=== PATIENT | male | born 1975 | race American Indian/Alaskan Native ===

== ENCOUNTER 2019-01-04 21:00 | Inpatient (IN) | payer SELFPAY ==
[~2019-01-04] VITALS: Ht 170.2 cm; Wt 94.9 kg
[2019-01-04] MEDS ORDERED: ONDANSETRON HCL INJ 2MG/ML 2ML 2 MG/ML VIAL IV STA (21:10)
[2019-01-04] MEDS ORDERED: SODIUM CHLORIDE 0.9% 1000ML 1,000 ML IV STA (21:10)
[2019-01-04] MEDS ORDERED: MORPHINE SULFATE INJ 4 MG/ML INJ 1ML IV STA (21:10)
[2019-01-04] MEDS ORDERED: DIATRIZOATE MEGL/DIATRIZOA SOD 30 ML BTL PO ONE (21:18)
[2019-01-04 21:44] LABS: BASOPHILS % 0.3 % (0.0-1.0); EOSINOPHILS # (AUTO) 0.2 (0.0-0.4); EOSINOPHILS % 1.4 % (0.0-6.0); HEMATOCRIT 49.6 % (38.2-49.6); HEMOGLOBIN 17.4 g/dL (14.0-18.0); LYMPHOCYTES # (AUTO) 3.5 (1.0-3.2); LYMPHOCYTES % 30.2 % (18.0-39.1); MEAN CORPUSCULAR HEMOGLOBIN 31.1 pg (28-32); MEAN CORPUSCULAR HGB CONC 35.1 g/dL (31-35); MEAN CORPUSCULAR VOLUME 88.6 fL (81-99); MONOCYTES # (AUTO) 0.7 (0.2-0.8); NEUTROPHILS # (AUTO) 7.1 (2.1-6.9); NEUTROPHILS % 61.8 % (38.7-80.0); PLATELET COUNT 141 x10e3/uL (140-360); RED CELL DISTRIBUTION WIDTH 13.3 % (11.7-14.4)
[2019-01-04 21:54] LABS: CLARITY,URINE CLEAR (CLEAR); COLOR,URINE YELLOW (YELLOW)
[2019-01-04 21:55] LABS: LEUKOCYTE ESTERASE ,URINE NEGATIVE (NEGATIVE); NITRITE,URINE NEGATIVE (NEGATIVE); PROTEIN,URINE DIPSTICK 1+ (NEGATIVE)
[2019-01-04 21:56] LABS: BILIRUBIN,URINE NEGATIVE (NEGATIVE); KETONES,URINE NEGATIVE (NEGATIVE); URINE UROBILINOGEN 0.2 mg/dL (0.2 - 1)
[2019-01-04 22:04] LABS: ALANINE AMINOTRANSFERASE 31 IU/L (0-55); ALBUMIN 3.9 g/dL (3.5-5.0); ALBUMIN/GLOBULIN RATIO 1.1 (0.8-2.0); ALKALINE PHOSPHATASE 103 IU/L (40-150); AMYLASE 65 U/L (25-125); ANION GAP 15.1 mmol/L (8-16); BLOOD UREA NITROGEN 24 mg/dL (7-26); BUN/CREATININE RATIO 25 (6-25); CALCIUM 9.8 mg/dL (8.4-10.2); CARBON DIOXIDE 22 mmol/L (22-29); CHLORIDE 102 mmol/L (98-107); CREATININE, SERUM 0.95 mg/dL (0.72-1.25); EST GLOMERULAR FILTRATION RATE > 60 ML/MIN (60-); GLUCOSE 137 mg/dL (74-118); LIPASE 59 U/L (8-78); MAGNESIUM 2.2 MG/DL (1.3-2.1); POTASSIUM 4.1 mmol/L (3.5-5.1); SODIUM 135 mmol/L (136-145)
[2019-01-04 22:11] LABS: BACTERIA,URINE FEW /HPF; EPITHELIAL CELLS,URINE FEW /LPF; RBC,URINE 0-5 /HPF (0-5); WBC,URINE (MAN) 0-5 /HPF (0-5)
--- NOTE | 2019-01-04 23:32 | Diagnostic Imaging Report ---
CT Abdomen And Pelvis with Intravenous Contrast INDICATION: ^abdominal pain, rule out obstruction ^[id number] ^7820 TECHNIQUE: Thin collimation axial images obtained from the diaphragm to the level of the pubic symphysis following the uneventful administration of oral and 100 cc of low osmolar, nonionic intravenous contrast. Dose reduction techniques used: Automated exposure control, adjustment of the mAs and/or kVp according to patient size, standardized low-dose protocol, and/or iterative reconstruction technique. RADIATION DOSE: Total DLP: 795.27 mGy*cm Estimated effective dose: (DLP x 0.015 x size factor) mSv CTDIvol has been reviewed. It is below the limits set by the Radiation Protocol Committee (RPC). COMPARISON: None. ABDOMEN FINDINGS: Lung Bases: Bibasilar atelectasis. Visualized portion of the mediastinum is normal. Liver: Decreased attenuation. The right lobe measures 18 cm in length. No evidence for mass. Gallbladder: Present and contains a small gallstone. No gallbladder wall thickening. No biliary ductal dilatation. Pancreas: Normal attenuation without mass or ductal dilatation. Spleen: 16 cm in length. No evidence of mass.. Adrenal Glands: No evidence for mass. Kidneys: Right: Normal enhancement. No soft tissue mass. No hydronephrosis. Left: Normal enhancement. No soft tissue mass. No hydronephrosis. Lymph Nodes: No enlarged abdominal or retroperitoneal lymph nodes. Aorta: Normal in diameter The SMA lies to the right of the SMV. Both are widely patent. PELVIS FINDINGS: Bowel: Stomach: Normal. Small Bowel: Enteric contrast present throughout. There are distended small bowel loops in the lower abdomen measuring about 4 cm in diameter and containing enteric contrast. There is no clear transition point. Multiple small bowel loops are adherent to the anterior abdominal wall. Large Bowel: The cecum is located in the left hemiabdomen. Several scattered diverticula without associated inflammation. Appendix: Not visualized. Bladder: Normal. Peritoneum/retroperitoneum: No free fluid or fluid collection. Soft tissues: Multiple surgical dorota in the anterior abdominal wall. No evidence of hernia. Bones: Moderate degenerative changes of the spine. No focal osseous lesions. IMPRESSION: 1. Distended small bowel loop in the lower abdomen without clear transition point and multiple small bowel loops adjacent to the anterior peritoneum. Findings are concerning for partial small bowel obstruction due to adhesion. 2. Malrotation of the bowel. Diverticulosis coli. No evidence of diverticulitis. Nonvisualization of the appendix. 3. Splenomegaly. 4. Steatosis. 5. Cholelithiasis. Normal biliary tree. Signed by: Dr. Lorna Dent MD on 01/04/2019 11:29 PM
[2019-01-05] VITALS (9 sets, daily range): BP systolic 106–121; BP diastolic 55–85
[2019-01-05] MEDS ORDERED: DEXTROSE 50% SYRINGE 50 ML IV PRN (00:30)
--- OUTSIDE RECORDS SUMMARY | 2019-01-05 00:46 | XMS REPORT ---
Author [facility] Address Unknown Phone Unavailable Care Team Providers Care Practice Advisor Name Role Phone Shilpa BROWER Unavailable Unavailable Problems This patient has no known problems. Allergies, Adverse Reactions, Alerts This patient has no known allergies or adverse reactions. Medications This patient has no known medications. Results Test Description Test Time Test Comments Text Results Atomic Results Result Comments CT ABDOMEN/PELVIS W 2019-01-04 23:18:[address] [address] Patient Name: FANNY CRAWFORD MR #: [id number] : 1975 Age/Sex: 43/M Req #: [id number] Adm Physician: Ordered by: ORALIA CHAUDHARI LAYBOY OPERATOR Report #: [id number] Location: ER Room/Bed: Procedure: [id number] CT/CT ABDOMEN/PELVIS W Exam Date: 01/04/19 Exam Time: 2234 REPORT STATUS: Signed CT Abdomen And Pelvis with Intravenous Contrast I NDICATION: abdominal pain, rule out obstruction [id number] TECHNIQUE: Thin collimation axial images obtained from the diaphragm to the level of the pubic symphysis following the uneventful administration of oral and 100 cc of low osmolar, nonionic intravenous contrast. Dose reduction techniques used: Automated exposure control, adjustment of the mAs and/or kVp according to patient size, standardized low-dose protocol, and/or iterative reconstruction technique. RADIATION DOSE: Total DLP: 795.27 mGy*cm Estimated effective dose: (DLP x 0.015 x size factor) mSv CTDIvol has been reviewed. It is below the limits set by the Radiation Protocol Committee (RPC). COMPARISON: None. ABDOMEN FINDINGS: Lung Bases: Bibasilar atelectasis. Visualized portion of the mediastinum is normal. Liver: Decreased attenuation. The right lobe measures 18 cm in length. No evidence for mass. Gallbladder: Present and contains a small gallstone. No gallbladder wall thickening. No biliary ductal dilatation. Pancreas: Normal attenuation without mass or ductal dilatation. Spleen: 16 cm in length. No evidence of mass.. Adrenal Glands: No evidence for mass. Kidneys: Right: Normal enhancement. No soft tissue mass. No hydronephrosis. Left: Normal enhancement. No soft tissue mass. No hydronephrosis. Lymph Nodes: No enlarged abdominal or retroperitoneal lymph nodes. Aorta: Normal in diameter The SMA lies to the right of the SMV. Both are widely patent. PELVIS FINDINGS: Bowel: Stomach: Normal. Small Bowel: Enteric contrast present throughout. There are distended small bowel loops in the lower abdomen measuring about 4 cm in diameter and containing enteric contrast. There is no clear transition point. Multiple small bowel loops are adherent to the anterior abdominal wall. Large Bowel: The cecum is located in the left hemiabdomen. Several scattered diverticula without associated inflammation. Appendix: Not visualized. Bladder: Normal. Peritoneum/retroperitoneum: No free fluid or fluid collection. Soft tissues: Multiple surgical dorota in the anterior abdominal wall. No evidence of hernia. Bones: Moderate degenerative changes of the spine. No focal osseous lesions. IMPRESSION: 1. Distended small bowel loop in the lower abdomen without clear transition point and multiple small bowel loops adjacent to the anterior peritoneum. Findings are concerning for partial small bowel obstruction due to adhesion. 2. Malrotation of the bowel. Diverticulosis coli. No evidence of diverticulitis. Nonvisualization of the appendix. 3. Splenomegaly. 4. Steatosis. 5. Cholelithiasis. Normal biliary tree. Signed by: Dr. Karl Dent MD on 01/04/2019 11:29 PM Dictated By: KARL DENT MD [id number] Transcribed By: WILLIAN on 01/04/19 1528 COPY TO: ORALIA CHAUDHARI LAYBOY OPERATOR
--- NOTE | 2019-01-05 01:21 | NUR ---
PT ARRIVED TO ROOM 112 BY WHEELCHAIR, PT IS AAOX3, RR EVEN AND NON-LABORED, ON RA. PT GUARDING ABDOMINAL STATES PAIN IS 12/10. PT ASSISTED TO BATHROOM AND BACK TO BED. LEFT PT SITTING ON SIDE OF BED, BED IN LOW LOCKED POSITION, SIDE RAILS UPX2, CALL LIGHT AND PHONE WITHIN REACH.
[2019-01-05] MEDS: ONDANSETRON HCL INJ 2MG/ML 2ML 2 MG/ML VIAL IV PRN ×4 (01:30→21:36)
[2019-01-05] MEDS: HYDROMORPHONE 2MG/ML 2 MG/ML ML IV PRN ×4 (01:30→21:36)
[2019-01-05] MEDS: SODIUM CHLORIDE 0.9% 1000ML 1,000 ML IV SCH ×3 (01:30→17:21)
[2019-01-05] MEDS ORDERED: CRESTOR10 MG PO (01:56)
[2019-01-05] MEDS ORDERED: PIOGLITAZONE HC45 MG PO (01:56)
[2019-01-05] MEDS ORDERED: ASPIRIN81 MG PO (01:56)
[2019-01-05] MEDS ORDERED: ZESTRIL10 MG PO (01:56)
[2019-01-05] MEDS ORDERED: METFORMIN HCL500 MG PO (01:56)
[2019-01-05] MEDS ORDERED: SODIUM CHLORIDE 0.9% 50ML 50 ML ONE (05:20)
[2019-01-05] MEDS ORDERED: IOPAMIDOL 370 MG/ML 200 ML INFUS..BTL INJ ONE (05:21)
[2019-01-05] MEDS: INSULIN REGULAR, HUMAN 100 UNIT/1 ML 3ML VIAL SQ SCH ×4 (07:30→21:00)
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
--- NOTE | 2019-01-05 19:05 | NUR ---
BEDSIDE SHIFT REPORT PERFORMED. RECEIVED PT LAYING SEMI FOWLERS IN BED, AAOX3, RR EVEN AND NON-LABORED, ON RA. NO S/SX OF DISTRESS NOTED. LEFT PT LAYING SEMI FOWLERS IN BED, BED IN LOW LOCKED POSITION, SIDE RAILS UPX2, CALL LIGHT AND PHONE WITHIN REACH.
[2019-01-06] VITALS: BP 110/70
[2019-01-06] MEDS: SODIUM CHLORIDE 0.9% 1000ML 1,000 ML IV SCH ×3 (00:28→09:47)
[2019-01-06 04:00] VITALS: BP 104/61
--- NOTE | 2019-01-06 06:03 | Diagnostic Imaging Report ---
Abdomen/KUB INDICATION: Small bowel obstruction ^SBO COMPARISON: CT abdomen/pelvis 01/04/2019. FINDINGS: Portable, supine image obtained at 0514 hours. Medical Devices: Surgical sutures throughout the abdomen are redemonstrated. Bowel: There is enteric contrast in the large bowel. No dilated small bowel loops. No pneumatosis. Free air: None Calcifications: None over the renal shadows or along the expected course of the ureters. Organomegaly: None Lung bases: Subsegmental atelectasis in the left lung base. Bones: Unremarkable IMPRESSION: No dilated bowel loops. Progression of enteric contrast into the large bowel. Signed by: Dr. Lorna Dent MD on 01/06/2019 6:00 AM
[2019-01-06 06:37] LABS: BASOPHILS % 0.3 % (0.0-1.0); EOSINOPHILS # (AUTO) 0.1 (0.0-0.4); EOSINOPHILS % 1.6 % (0.0-6.0); HEMATOCRIT 44.5 % (38.2-49.6); HEMOGLOBIN 15.4 g/dL (14.0-18.0); LYMPHOCYTES # (AUTO) 2.1 (1.0-3.2); LYMPHOCYTES % 35.2 % (18.0-39.1); MEAN CORPUSCULAR HEMOGLOBIN 30.9 pg (28-32); MEAN CORPUSCULAR HGB CONC 34.6 g/dL (31-35); MEAN CORPUSCULAR VOLUME 89.4 fL (81-99); MONOCYTES # (AUTO) 0.5 (0.2-0.8); MONOCYTES % 8.1 % (4.4-11.3); NEUTROPHILS # (AUTO) 3.3 (2.1-6.9); NEUTROPHILS % 54.6 % (38.7-80.0); PLATELET COUNT 113 x10e3/uL (140-360); RED BLOOD COUNT 4.98 x10e6/uL (4.3-5.7); RED CELL DISTRIBUTION WIDTH 13.2 % (11.7-14.4)
[2019-01-06 07:08] LABS: ALANINE AMINOTRANSFERASE 22 IU/L (0-55); ALBUMIN 3.3 g/dL (3.5-5.0); ALBUMIN/GLOBULIN RATIO 1.1 (0.8-2.0); ALKALINE PHOSPHATASE 87 IU/L (40-150); ANION GAP 15.3 mmol/L (8-16); BLOOD UREA NITROGEN 13 mg/dL (7-26); BUN/CREATININE RATIO 16 (6-25); CALCIUM 8.7 mg/dL (8.4-10.2); CARBON DIOXIDE 23 mmol/L (22-29); CHLORIDE 110 mmol/L (98-107); CREATININE, SERUM 0.79 mg/dL (0.72-1.25); EST GLOMERULAR FILTRATION RATE > 60 ML/MIN (60-); GLUCOSE 79 mg/dL (74-118); POTASSIUM 4.3 mmol/L (3.5-5.1); SODIUM 144 mmol/L (136-145)
[2019-01-06] MEDS: INSULIN REGULAR, HUMAN 100 UNIT/1 ML 3ML VIAL SQ SCH ×2 (07:30→11:30)
[2019-01-06 08:10] VITALS: BP 111/70
[2019-01-06 08:30] VITALS: BP 111/70
--- NOTE | 2019-01-06 10:47 | NUR ---
GAVE PACKET OF INFORMATION WITH [employer] [employer] FOR ASSISTANCE WITH LOW TO NO INCOME TO PATIENT. RESOURCES THAT PATIENT MAY BE ABLE TO FOLLOW UP UPON DISCHARGE. PT EDUCATED ON EACH RESOURCE AND UNDERSTANDING HOW TO FOLLOW UP TO SEE IF QUALIFIED FOR EACH RESOURCE.
--- NOTE | 2019-01-06 10:47 | NUR ---
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
[2019-01-06 12:04] VITALS: BP 125/82
--- NOTE | 2019-01-06 12:20 | NUR ---
MD Domingo BAKER HAS ROUNDED AND HAS DC PT DISCHARGE INSTRUCTIONS AND PRESCRIPTIONS GIVEN. PT VERBALIZED UNDERSTANDING IV DC PRESSURE DRESSING APPLIED AND TAPED
== END 2019-01-06 12:30 | disposition home or self-care (01) | DRG 390 ==
LOC: ER 21:00 → ERHOLD 01-05 00:39 → MED/SURG 01-05 01:21
DX: K56.51 Intestinal adhesions [bands], with partial obstruction (principal); E11.9 Type 2 diabetes mellitus without complications; Z79.4 Long term (current) use of insulin; I10 Essential (primary) hypertension; E78.5 Hyperlipidemia, unspecified
CPT/HCPCS: 36415; 74018; 74177; 80053; 81001; 82150; 82948; 83605; 83690; 83735; 85025; 99284; J2270; J2405; J7030; Q9967